=== PATIENT | female | born 1965 | race Caucasian/White ===

== ENCOUNTER 2018-05-31 03:20 | Emergency (ER) | END 2018-05-31 08:09 | disposition home or self-care (01) ==

== ENCOUNTER 2019-03-29 08:12 | Day surgery (SDC) | payer OTHER ==
[2019-03-29] VITALS (8 sets, daily range): BP systolic 103–130; BP diastolic 65–76; PULSE 53–68; RESP 12–19; Ht 142.2 cm; Wt 72.8 kg
[~2019-03-29] VITALS: Ht 142.2 cm; Wt 72.8 kg
[~2019-03-29 08:12] MED LIST: ACET1TAB40 PO; BALANCED SALT SOLN 15 ML OPH IRRIG ONE; HYDR-4011 PO; MITOMYCIN 5 MG INJ RIGHT EYE ONE; NAPR-688 PO; NAPR-985 PO; ONDA4TAB14 PO
--- NOTE | 2019-03-29 08:23 | PREAC ---
Date/Time of Note Date/Time of Note DATE: 03/29/19 TIME: : Anesthesia Eval and Record Evaluation Time Pre-Procedure Interview DATE: 03/29/19 TIME: : Age 53 Sex female NPO: 8 hrs Preoperative diagnosis pterygium right eye Planned procedure excision of pterygium, application of mitomycin Past Medical History Past Medical History: Includes Cardio: Dyslipidemia GI: Obesity (bmi 36) Surgery & Anesthesia Issues No known issue Meds Anticoagulation: No Beta Nohemy within 24 hr: No Reason Beta Nohemy not given: Pt. not on B-Nohemy Discontinued Scripts Ondansetron (Ondansetron Odt) 4 Mg Tab.rapdis, 4 MG PO Q6H PRN for NAUSEA AND/OR VOMITING, #10 TAB Prov:LUISDAVIDA DO 05/31/18 Hydrocodone/Acetaminophen ([place] 5-325 Tablet) 1 Each Tablet, 1 EACH PO Q6 PRN for SEVERE PAIN LEVEL 7-10, #10 TAB Prov:LUISDAVIDA DO 05/31/18 Naproxen* (Naproxen*) 500 Mg Tablet, 500 MG PO BID PRN for PAIN, #17 TAB Prov:LUISDAVIDA DO 05/31/18 Acetaminophen-Codeine* (Acetaminophen-Cod #3*) 300-30 Mg Tab, 1 TAB PO Q8 PRN for PAIN, #12 TAB Prov:VESNA CLINTON DO 02/13/16 Naproxen* (Naprosyn*) 500 Mg Tablet, 500 MG PO BID PRN for PAIN AND/OR INFLAMMATION, #15 TAB Prov:VESNA CLINTON DO 02/13/16 Meds reviewed: Yes Allergies Coded Allergies: No Known Allergy (Unverified , 03/29/19) Allergies Reviewed: Yes Labs/Studies Labs Reviewed: Reviewed by anesthesiologist test: Negative Studies: ECG Pre-procedure Exam Airway: Adequate mouth opening, Adequate thyromental dist Mallampati: Mallampati II Teeth: Normal (lower partials are out) Lung: Normal Heart: Normal ASA Physical Status ASA physical status: 2 Emergency: None Planned Anesthetic General/MAC: MAC, TIVA Pre-operative Attestations Prior to commencing anesthesia and surgery, the patient was re-evaluated, there was verification of: *The patient's identity *The results of appropriate recent lab work and preoperative vital signs *The above evaluation not changing prior to induction *Anesthetic plan, risk benefits, alternative and complications discussed with patient/family; questions answered; patient/family understands, accepts and wishes to proceed. MARTY RUIZ Mar 29, 2019 08:23
[2019-03-29] MEDS ORDERED: PROPOFOL 20 ML ONE (09:28)
[2019-03-29] MEDS ORDERED: FENTAnyl 50 MCG/ML VIAL ONE (09:28)
[2019-03-29] MEDS ORDERED: LIDOCAINE 1%/EPI 30 ML INJ ONE (09:59)
[2019-03-29] MEDS ORDERED: TOBRAMYCIN/DEXAMETH 3.5 GM OPH OINT ONE (10:00)
[2019-03-29] MEDS ORDERED: TETRACAINE 0.5% 4 ML OPH ONE (10:00)
--- NOTE | 2019-03-29 10:18 | HPN ---
Date/Time of Note Date/Time of Note DATE: 03/29/19 TIME: 10:18 TALHA CARNES MD Mar 29, 2019 10:18
--- NOTE | 2019-03-29 11:13 | PAC ---
Date/Time of Note Date/Time of Note DATE: 03/29/19 TIME: 11:12 Post-Anesthesia Notes Post-Anesthesia Note Last documented vital signs HR 64 BP 107/73 SPO2 96% TEMP 98.5 rr 16 Vital Signs Date Temp Pulse Resp B/P (MAP) Pulse Ox O2 O2 Flow FiO2 Time Delivery Rate 03/29/19 98.5 11:10 03/29/19 66 16 130/69 99 Room Air 09:21 (89) Activity: WNL Respiratory function: WNL Cardiovascular function: WNL Mental status: Baseline Pain reasonably controlled: Yes Hydration appropriate: Yes Nausea/Vomiting absent: Yes MARTY RUIZ Mar 29, 2019 11:13
[2019-03-29] MEDS ORDERED: FENTAnyl 50 MCG/ML VIAL IV PRN ×3 (11:30)
[2019-03-29] MEDS ORDERED: LABETALOL HCL 20MG INJ IV PRN (11:30)
[2019-03-29] MEDS ORDERED: OXYCODONE/ACETAMINOPHEN (5/325) TAB PO PRN ×2 (11:30)
[2019-03-29] MEDS ORDERED: ONDANSETRON 4 MG INJ IV PRN (11:30)
--- NOTE | 2019-03-29 15:56 | OPR ---
DATE OF OPERATION: 03/29/2019 SURGEON: Emily Martinez MD CHEMICAL DEPENDENCY ATTENDANT: None. ANESTHESIOLOGIST: PREOPERATIVE DIAGNOSIS: Pterygium, left eye. POSTOPERATIVE DIAGNOSIS: Pterygium, left eye. OPERATION: Excision of pterygium, left eye; application of mitomycin C; closure of defect with conju nctival advancement flaps. DESCRIPTION OF PROCEDURE: Following standard preparation and draping of the patient, a solid-blade l id speculum was placed for immobilization of the lids. A small amount of 2% Xylocaine with epinephri ne was injected beneath the body of the pterygium so as to elevate it from the underlying sclerae. A fter adequate local anesthesia was obtained, Gustavo scissors were simply used to make an incision a long the edges of the pterygium, amputating the body approximately 1 cm posterior to the limbus. At the limbus, the major portion of the tissue was simply excised using sharp scissors. Using a rotating jil bur, all of the scar tissue on the cornea was removed down to clear cornea. At this point, bleeding points were secured with the heat cautery. Mitomycin C (0.2 mg/ml) was now applied to the limbal regions for three minutes. After three minutes, the eye was copiously irrigate d with balanced salt solution. A peritomy was now performed both superiorly and inferiorly and relax ing incisions made at approximately the 6 and 12 o'clock positions. The undermining conjunctiva was now pulled both superiorly and inferiorly so as to close the previously made defect from which the pt erygium had been removed. Sutures of interrupted 8-0 Vicryl were used and a bite of the underlying s clera was taken so as to ensure adequate maintenance of the flaps in a nonmovable position. Betadine 5% solution was placed on the eye, along with TobraDex ointment. A light pressure dressing was applied, and the patient returned to the recovery room in satisfactory condition. Dictated By: EMILY RHODES/SAVAGE Conf#: [id number] DID#: [id number]
== END 2019-03-29 12:45 | disposition home or self-care (01) ==
LOC: SDS 08:12
PROVIDERS: ATTEND Ophthalmology
DX: H11.002 Unspecified pterygium of left eye (principal)
CPT/HCPCS: 65420; 84703; J3010; J9280; Z7512; Z7610